=== PATIENT | female | born 1950 | race Caucasian/White ===

== ENCOUNTER 2018-12-29 00:10 | Emergency (ER) | payer MEDICARE, OTHER ==
[~2018-12-29] VITALS: Ht 177.8 cm; Wt 130.0 kg
--- NOTE | 2018-12-29 00:20 | NUR ---
BIB [facility] AFTER FALL GETTING OUT OF SHOWER. PT HAVING PAIN TO RIGHT WRIST, KNEE, AND ANKLE. FENTANYL 50MCG GIVEN BY [facility].
[2018-12-29] MEDS ORDERED: AMIT100T PO (00:22)
[2018-12-29] MEDS ORDERED: KETOROLAC 30 MG/1 ML ONE (00:27)
[2018-12-29] MEDS ORDERED: MORPHINE SULFATE 4 MG/ML, 1ML ONE (00:27)
[2018-12-29] MEDS ORDERED: MORPHINE SULFATE 4 MG/ML, 1ML IVPush PRN (00:30)
[2018-12-29] MEDS ORDERED: KETOROLAC 30 MG/1 ML IV ONE (00:30)
[2018-12-29] MEDS ORDERED: SODIUM CHLORIDE FLUSH 10ML SYR IVF ONE (00:30)
[2018-12-29] MEDS ORDERED: HYDROcodone/APAP 5/325 TABLET PO ONE (02:00)
[2018-12-29] MEDS ORDERED: HYDROcodone/APAP 5/325 TABLET ONE (02:14)
[2018-12-29 03:04] VITALS: BP 118/78
== END 2018-12-29 03:06 | disposition home or self-care (01) ==
LOC: ED 02:51
DX: S52.591A Other fractures of lower end of right radius, initial encounter for closed fracture (principal); W18.2XXA Fall in (into) shower or empty bathtub, initial encounter; Y93.89 Activity, other specified; Y92.89 Other specified places as the place of occurrence of the external cause; Y99.8 Other external cause status
CPT/HCPCS: 29125; 73110; 73564; 73610; 96374; 96375; 99283; J1885